=== PATIENT | female | born 1940 ===

== ENCOUNTER 2019-04-06 14:29 | Inpatient (IN) | payer OTHER ==
[~2019-04-06] VITALS: Ht 149.9 cm; Wt 61.2 kg
[~2019-04-06 14:29] MED LIST: GABAPENTIN600 MG PO; PERCOCET 10-321 EACH PO; SYNTHROID50 MCG PO
[2019-04-12] MEDS ORDERED: CLONAZEPAM1 MG PO (12:45)
[2019-04-12] MEDS ORDERED: AMOX-CLAV 875-1 EACH PO (12:45)
[2019-04-12] MEDS ORDERED: PERCOCET 5-3251 EACH PO (12:45)
[2019-04-12] MEDS ORDERED: GABAPENTIN800 MG PO (12:45)
[2019-04-12] MEDS ORDERED: DOCUSATE SODIU100 MG PO (12:45)
== END 2019-04-14 19:57 | DRG 460 ==
LOC: SURH 04-12 05:30 → O/R 04-12 05:30 → RECOVERY 04-12 09:30 → SURG 04-12 13:13 → SURH 04-12 13:29
PROVIDERS: ADMIT Orthopaedic Surgery Orthopaedic Surgery of the Spine
PROC: 0SB20ZZ Excision of Lumbar Vertebral Disc, Open Approach (ICD-10-PCS; 2019-04-12)
PROC: 0SG00K1 Fusion of Lumbar Vertebral Joint with Nonautologous Tissue Substitute, Posterior Approach, Posterior Column, Open Approach (ICD-10-PCS; principal; 2019-04-12 09:30)
DX: M48.062 Spinal stenosis, lumbar region with neurogenic claudication (principal); M51.26 Other intervertebral disc displacement, lumbar region; E03.8 Other specified hypothyroidism